=== PATIENT | male | born 1945 | race Two or more races ===

== ENCOUNTER 2018-10-03 14:24 | Emergency (ER) | payer MEDICAID ==
[~2018-10-03] VITALS: Ht 172.7 cm; Wt 63.5 kg
[2018-10-03 14:30] VITALS: BP 125/79
--- NOTE | 2018-10-03 14:30 | NUR ---
ED Nurse Note: PAtient brought in by ambulance from [facility] c/o kumar bag change, patient did come with a kumar prior to arrival, staets that he just wants a leg bag, denies any pain
--- NOTE | 2018-10-03 15:00 | NUR ---
ED Nurse Note: kumar replaced using [employer] [place] catheter as well as replacing patient's bag with a leg bag. Charge nurse informed, will send patient back to [facility]
--- NOTE | 2018-10-03 16:39 | NUR ---
ED Nurse Note: [facility] here to transport pt [facility] to [facility]. pt awake and alert upon dc. report given to ds crew. all belongings back to [facility] with pt.
[2018-10-03 16:40] VITALS: BP 142/86
--- NOTE | 2018-10-03 17:12 | Emergency Room Report ---
History of Present Illness General Chief Complaint: Male Urogenital Problems Source: Patient, Medical Record, EMS Present Illness HPI 73-year-old male presents ED for evaluation. Patient sent from [facility] facility for Kumar catheter replacement. Per nursing staff it appears to be not functioning. Noticed today. Upon arrival patient showing so signs of distress. Denies any pain. Denies any fevers or chills. Denies any nausea or vomiting. Denies flank pain. No other aggravating relieving factors. Denies any other associated symptoms Allergies: Coded Allergies: No Known Allergies (Unverified , 10/03/18) Patient History Past Medical History: HTN Past Surgical History: none Pertinent Family History: none Social History: Denies: smoking, alcohol use, drug use Immunizations: UTD Reviewed Nursing Documentation: PMH: Agreed; PSxH: Agreed Nursing Documentation-PMH Hx Hypertension: Yes Review of Systems All Other Systems: negative except mentioned in HPI Physical Exam Vital Signs Date Time Temp Pulse Resp B/P (MAP) Pulse Ox O2 Delivery O2 Flow Rate FiO2 10/03/18 14:20 98.2 82 20 122/72 92 Room Air Sp02 EP Interpretation: reviewed, normal General Appearance: no apparent distress, alert, GCS 15, non-toxic Head: normocephalic, atraumatic Eyes: bilateral eye normal inspection, bilateral eye PERRL ENT: hearing grossly normal, normal pharynx, no angioedema, normal voice Neck: full range of motion, supple/symm/no masses Respiratory: chest non-tender, lungs clear, normal breath sounds, speaking full sentences Cardiovascular #1: regular rate, rhythm, no edema Cardiovascular #2: 2+ carotid (R), 2+ carotid (L), 2+ radial (R), 2+ radial (L) , 2+ dorsalis pedis (R), 2+ dorsalis pedis (L) Gastrointestinal: normal bowel sounds, non tender, soft, non-distended, no guarding, no rebound Rectal: deferred Genitourinary: normal inspection, no CVA tenderness Musculoskeletal: back normal, gait/station normal, normal range of motion, non- tender Neurologic: alert, oriented x3, responsive, motor strength/tone normal, sensory intact, speech normal Psychiatric: judgement/insight normal, memory normal, mood/affect normal, no suicidal/homicidal ideation Reflexes: 3+ bicep (R), 3+ bicep (L), 3+ tricep (R), 3+ tricep (L), 3+ knee (R) , 3+ knee (L) Skin: normal color, no rash, warm/dry, well hydrated Lymphatic: no adenopathy Medical Decision Making Diagnostic Impression: Primary Impression: Kumar catheter problem Qualified Codes: T83.9XXA - Unspecified complication of genitourinary prosthetic device, implant and graft, initial encounter ER Course Hospital Course 73-year-old male presents ED for Kumar catheter replacement Differential diagnoses include: obstruction, UTI, BPH Clinical course Patient placed on stretcher. After initial history and physical we replace Kumar catheter with urine output noted. Patient tolerated without complication. Vital stable. Can be safely discharged back to [facility] facility Diagnosis - kumar catheter problem Stable and discharged home with kumar + leg bag. Instructed to followup with PMD/urologist. Return to ED if symptoms recur or worsen Last Vital Signs Date Time Temp Pulse Resp B/P (MAP) Pulse Ox O2 Delivery O2 Flow Rate FiO2 10/03/18 16:40 69 16 142/86 94 Room Air 10/03/18 14:30 98.2 Status: improved Disposition: [facility] Condition: Stable Referrals: José Adams M.D. Patient Instructions: Kumar Catheter Care, Adult, [id number] Devaughn Knapp MD Oct 03, 2018 17:12
== END 2018-10-03 16:42 ==
LOC: EDBD 14:24 → EMR 15:15
DX: T83.9XXA Unspecified complication of genitourinary prosthetic device, implant and graft, initial encounter (principal); I10 Essential (primary) hypertension; Y84.6 Urinary catheterization as the cause of abnormal reaction of the patient, or of later complication, without mention of misadventure at the time of the procedure; Y92.9 Unspecified place or not applicable
CPT/HCPCS: 51702; 99283

== ENCOUNTER 2018-12-31 12:20 | Emergency (ER) | payer SELFPAY ==
[~2018-12-31] VITALS: Ht 177.8 cm; Wt 81.6 kg
[2018-12-31] MEDS ORDERED: FLOMAX0.4 MG ORAL (12:33)
[2018-12-31] MEDS ORDERED: ELIQUIS2.5 MG PO (12:33)
[2018-12-31] MEDS ORDERED: FOLIC ACID1 MG ORAL (12:33)
[2018-12-31] MEDS ORDERED: VITAMIN D5000 UNI1 PO (12:33)
[2018-12-31 13:10] VITALS: BP 121/71
[2018-12-31 13:40] LABS: APPEARANCE,URINE SLIGHTLY CLOUDY; BILIRUBIN, URINE NEGATIVE (NEGATIVE); COLOR,URINE PALE YELLOW; GLUCOSE, URINE (UA) NEGATIVE (NEGATIVE); KETONES,URINE NEGATIVE (NEGATIVE); LEUKOCYTE ESTERASE ,URINE 3+ (NEGATIVE); NITRITE,URINE NEGATIVE (NEGATIVE); PH,URINE 6.5 (4.5-8.0); PROTEIN,URINE 3+ (NEGATIVE); UROBILINOGEN,URINE NORMAL MG/DL (0.0-1.0)
--- NOTE | 2018-12-31 13:56 | Emergency Room Report ---
History of Present Illness General Chief Complaint: Male Urogenital Problems Present Illness HPI 73-year-old male with history of renal failure on dialysis coming from prison having a Tsai catheter inserted here complaining of 1 day of loosening of the Tsai catheter. Patient denies painful urination, hematuria, pain at the site of Tsai or pus drainage. Denies suprapubic pain and pressure, flank pain , nausea vomiting, fever and chills. Denies chest pain, shortness of breath, palpitation, and other associated symptoms. Allergies: Coded Allergies: No Known Allergies (Unverified , 10/03/18) Patient History Past Medical History: see triage record Past Surgical History: unable to obtain Pertinent Family History: none Immunizations: UTD Reviewed Nursing Documentation: PMH: Agreed; PSxH: Agreed Nursing Documentation-PMH Hx Hypertension: Yes Review of Systems All Other Systems: negative except mentioned in HPI Physical Exam Vital Signs Date Time Temp Pulse Resp B/P (MAP) Pulse Ox O2 Delivery O2 Flow Rate FiO2 12/31/18 12:09 97.5 78 18 124/76 (92) 95 Room Air Sp02 EP Interpretation: reviewed, normal General Appearance: normal inspection, well appearing, no apparent distress Head: normocephalic, atraumatic Eyes: bilateral eye normal inspection, bilateral eye PERRL ENT: normal ENT inspection, hearing grossly normal, no angioedema Neck: normal inspection, full range of motion, supple Respiratory: normal inspection, chest non-tender, lungs clear, normal breath sounds, no rhonchi Cardiovascular #1: normal inspection, normal peripheral pulses, regular rate, rhythm, no edema, no gallop, no murmur Gastrointestinal: normal inspection, non tender, soft Genitourinary: no CVA tenderness, other - Tsai catheter inserted loosely no pus drainage noted no erythema noted at site of the insertion Musculoskeletal: normal inspection, back normal, digits/nails normal Neurologic: normal inspection, alert, oriented x3, responsive Psychiatric: normal inspection, judgement/insight normal Skin: normal inspection, normal color, no rash, warm/dry Lymphatic: normal inspection, no adenopathy Medical Decision Making PA Attestation All my diagnosis and treatment plans were reviewed ad discussed with my supervising physician Dr. Wilson Diagnostic Impression: Primary Impression: Prostatitis Additional Impression: Tsai catheter problem ER Course 73-year-old male with history of renal failure on dialysis coming from prison having a Tsai catheter inserted here complaining of 1 day of loosening of the Tsai catheter. Patient denies painful urination, hematuria, pain at the site of Tsai or pus drainage. Denies suprapubic pain and pressure, flank pain , nausea vomiting, fever and chills. Denies chest pain, shortness of breath, palpitation, and other associated symptoms. Ddx considered but are not limited to: UTI, pylonephritis, urinary incontinence , prolapsed bladder. prostatitis, Tsai catheter problem, Tsai catheter clogged Vital signs: are WNL, pt. is afebrile H&PE are most consistent with: Loose and Tsai catheter, prostatitis ORDERS: UA, urine cx ED INTERVENTIONS: Insertion of a new Tsai catheter and feels comfortable after the insertion DISCHARGE: At this time pt. is stable for d/c to home. Will provide printed patient care instructions, and any necessary prescriptions. Care plan and follow up instructions have been discussed with the patient prior to discharge. Patient [facility] with aftercare instructions and medications for prostatitis were given to him patient stable at time of discharge. blood of 3+ urine and 2+ leuks and white blood cells in urine Last Vital Signs Date Time Temp Pulse Resp B/P (MAP) Pulse Ox O2 Delivery O2 Flow Rate FiO2 12/31/18 12:09 97.5 78 18 124/76 (92) 95 Room Air Disposition: HOME, SELF-CARE Condition: Stable Scripts Ciprofloxacin* (CIPRO*) 500 Mg Tablet 500 MG PO BID for 10 Days, #20 TAB Prov: Lauren Sellers 12/31/18 Patient Instructions: Tsai Catheter Care, Adult, [id number], Prostatitis, [id number] Lauren Sellers Dec 31, 2018 13:56
[2018-12-31] MEDS ORDERED: CIPRO500 MG PO (13:57)
[2018-12-31 16:28] VITALS: BP 133/83
== END 2018-12-31 16:45 | disposition home or self-care (01) ==
LOC: EDBD 12:20 → EMR 12:53
DX: N41.9 Inflammatory disease of prostate, unspecified (principal); Z46.6 Encounter for fitting and adjustment of urinary device; I10 Essential (primary) hypertension
CPT/HCPCS: 51702; 81001; 87086; 99284